=== PATIENT | female | born 1995 | race American Indian/Alaskan Native ===

== ENCOUNTER 2016-11-23 18:30 | Emergency (ER) | payer OTHER ==
[2016-11-23 18:56] VITALS: BP 126/62; PULSE 80; RESP 18; TEMP 98.8; O2SAT 100
--- NOTE | 2016-11-23 19:21 | ED PDOC ---
Upper Extremity Pain/Injury Time Seen by Provider: 11/23/16 18:57 Chief Complaint (Nursing): Upper Extremity Problem/Injury Chief Complaint (Provider): Left shoulder injury History Per: Patient History/Exam Limitations: no limitations Onset/Duration Of Symptoms: Days Current Symptoms Are (Timing): Still Present Quality: "Pain" Exacerbating Factor(s): Strenuous Use Of Affected Area Additional History Per: Patient Additional Complaint(s): The patient is a 21 y/o right hand dominant female who presents to the ED for evaluation of left shoulder pain, present for the last 3 weeks. Patient reports she visited urgent care center yesterday and had an XR done, which indicated mild AC separation. Patient states motrin has not helped the pain. Patient came to ED today due to increasing pain. No numbness or tingling to affected area. No chest pain, SOB or HUNT. Past Medical History Reviewed: Historical Data, Nursing Documentation, Vital Signs Vital Signs: Last Vital Signs Temp 98.8 F 11/23/16 18:53 Pulse 80 11/23/16 18:53 Resp 18 11/23/16 18:53 BP 126/62 11/23/16 18:53 Pulse Ox 100 11/23/16 18:53 - Medical History PMH: No Chronic Diseases - Surgical History Surgical History: Hernia Repair - Family History Family History: States: No Known Family Hx - Living Arrangements Living Arrangements: With Family - Social History Current smoker - smoking cessation education provided: No Ex-Smoker (has not smoked in the last 12 months): No Alcohol: None Drugs: Denies - Home Medications Home Medications: Ambulatory Orders Medication Instructions Recorded Cyclobenzaprine [Cyclobenzaprine 10 mg PO TID PRN #20 tab 11/23/16 HCl] Ibuprofen [Motrin Tab] 800 mg PO Q8 PRN #20 tab 11/23/16 Lidocaine 5% [Lidoderm] 1 ea TD DAILY #30 patch 11/23/16 - Allergies Allergies/Adverse Reactions: Allergies Allergy/AdvReac Type Severity Reaction Status Date / Time Penicillins Allergy family hx Verified 11/23/16 18:52 Review of Systems ROS Statement: Except As Marked, All Systems Reviewed And Found Negative Musculoskeletal: Positive for: Shoulder Pain (left) Neurological: Negative for: Weakness, Numbness Physical Exam - Reviewed Nursing Documentation Reviewed: Yes Vital Signs Reviewed: Yes - Physical Exam Appears: Positive for: Non-toxic, No Acute Distress Head Exam: Positive for: ATRAUMATIC, NORMAL INSPECTION, NORMOCEPHALIC Skin: Positive for: Warm, Dry Neck: Positive for: Normal, Supple Cardiovascular/Chest: Positive for: Regular Rate, Rhythm Respiratory: Positive for: Normal Breath Sounds. 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 Negative for: Deformity, Swelling Neurologic/Psych: Positive for: Alert, Oriented. Negative for: Motor/Sensory Deficits - Laboratory Results Urine POC: Negative - ECG O2 Sat by Pulse Oximetry: 100 (RA) Pulse Ox Interpretation: Normal Medical Decision Making Medical Decision Making: Time: 1918 Impression: Left AC joint separation Plan: -- Flexeril 10 mg PO -- Toradol 30 mg IM X-ray report from urgent care facility read by EVERETTE, report indicates mild AC separation with no fracture or dislocation. PA unable to review actual films as CD could not be opened on computer. Patient was offered another x-ray but she declined. Sling was given. Patient was referred to ortho customs and border protection inspector for follow up. Rx motrin, flexeril and lidoderm patch given. Scribe Attestation: Documented by Estefany Jurado acting as a scribe for EVERETTE Cooper Provider Attestation: All medical record entries made by the Scribe were at my direction and personally dictated by me. I have reviewed the chart and agree that the record accurately reflects my personal performance of the history, physical exam, medical decision making, and the department course for this patient. I have also personally directed, reviewed, and agree with the discharge instructions and disposition. Procedures - Splinting Location: left arm Pre-Made Type: sling Pre-Proc Neuro Vasc Exam: normal Post-Proc Neuro Vasc Exam: normal Disposition - Clinical Impression Clinical Impression: Separation of left acromioclavicular joint - Patient ED Disposition Is Patient to be Admitted: No Counseled Patient/Family Regarding: Studies Performed, Diagnosis, Need For Followup, Rx Given - Disposition Referrals: Dimas Elias III, MD [Staff Provider] - Disposition: Routine/Home Disposition Time: 19:31 Condition: STABLE Additional Instructions: Ice and rest the affected area. Take prescription meds as directed as needed for pain. Follow-up with orthopedist for any persistent symptoms. Prescriptions: Cyclobenzaprine [Cyclobenzaprine HCl] 10 mg PO TID PRN #20 tab PRN Reason: Muscle Spasm Ibuprofen [Motrin Tab] 800 mg PO Q8 PRN #20 tab PRN Reason: Pain, Moderate (4-7) Lidocaine 5% [Lidoderm] 1 ea TD DAILY #30 patch Instructions: Shoulder Sprain (ED), Shoulder Pain (ED) Forms: [employer] (Bruneian)
== END 2016-11-23 20:25 | disposition home or self-care (01) ==
LOC: H.ER 18:30
DX: S43.102A Unspecified dislocation of left acromioclavicular joint, initial encounter (principal); X50.9XXA Other and unspecified overexertion or strenuous movements or postures, initial encounter; Y92.89 Other specified places as the place of occurrence of the external cause
CPT/HCPCS: 81025; 96372; 99283; J1885

== ENCOUNTER 2017-01-02 08:48 | Emergency (ER) | payer OTHER ==
[2017-01-02 08:56] VITALS: BMI 26.5
[2017-01-02 08:57] VITALS: BP 121/48; PULSE 81; RESP 18; TEMP 98.9; O2SAT 99
--- NOTE | 2017-01-02 09:19 | ED PDOC ---
HPI: Female Pain Time Seen by Provider: 01/02/17 09:01 Chief Complaint (Nursing): Female Genitourinary Chief Complaint (Provider): Dysuria History Per: Patient History/Exam Limitations: no limitations Onset/Duration Of Symptoms: Days (Today 3am) Current Symptoms Are (Timing): Still Present Additional History Per: Patient Additional Complaint(s): Dysuria, freq urination, blood tinged urine. No abd, back pain. No nausea, vomit, diarrhea. Feels like her uti she has had multiple times in the past. No weakness. Past Medical History Reviewed: Nursing Documentation, Vital Signs Vital Signs: Last Vital Signs Temp 98.9 F 01/02/17 08:56 Pulse 81 01/02/17 08:56 Resp 18 01/02/17 08:56 BP 121/48 L 01/02/17 08:56 Pulse Ox 99 01/02/17 08:56 - Medical History PMH: Denies: Chronic Kidney Disease Other PMH: uti - Family History Family History: States: Unknown Family Hx - Social History Current smoker - smoking cessation education provided: No Alcohol: None Drugs: Denies - Immunization History Hx Tetanus Toxoid Vaccination: No Hx Influenza Vaccination: No Hx Pneumococcal Vaccination: No - Home Medications Home Medications: Ambulatory Orders Medication Instructions Recorded Cyclobenzaprine [Cyclobenzaprine 10 mg PO TID PRN #20 tab 11/23/16 HCl] Ibuprofen [Motrin Tab] 800 mg PO Q8 PRN #20 tab 11/23/16 Lidocaine 5% [Lidoderm] 1 ea TD DAILY #30 patch 11/23/16 Ciprofloxacin HCl [Cipro] 250 mg PO BID #6 tab 01/02/17 Ibuprofen [Motrin] 600 mg PO TID 7 Days tab 01/02/17 - Allergies Allergies/Adverse Reactions: Allergies Allergy/AdvReac Type Severity Reaction Status Date / Time Penicillins Allergy family hx Verified 11/23/16 18:52 Review of Systems Constitutional: Negative for: Fever, Weakness ENT: Negative for: Nose Pain, Nose Congestion Cardiovascular: Negative for: Chest Pain Respiratory: Negative for: Cough, Shortness of Breath Gastrointestinal: Negative for: Nausea, Vomiting, Abdominal Pain Genitourinary Female: Positive for: Dysuria, Frequency, Hematuria. Negative for : Vaginal Discharge, Vaginal Bleeding Musculoskeletal: Negative for: Arm Pain Neurological: Negative for: Weakness Physical Exam - Reviewed Nursing Documentation Reviewed: Yes Vital Signs Reviewed: Yes - Physical Exam Appears: Positive for: Well, Non-toxic, No Acute Distress Head Exam: Positive for: ATRAUMATIC, NORMAL INSPECTION, NORMOCEPHALIC Neck: Positive for: Normal, Painless ROM Cardiovascular/Chest: Positive for: Regular Rate, Rhythm Respiratory: Positive for: CNT, Normal Breath Sounds Gastrointestinal/Abdominal: Positive for: Normal Exam, Bowel Sounds, Soft. Negative for: Tenderness Back: Positive for: Normal Inspection. Negative for: L CVA Tenderness, R CVA Tenderness - ECG O2 Sat by Pulse Oximetry: 99 Pulse Ox Interpretation: Normal - Progress ED Course And Treament: 941: Stable. Pos uti. FU with pcp. Rx cipro. Disposition - Clinical Impression Clinical Impression: Urinary tract infection - Patient ED Disposition Is Patient to be Admitted: No Counseled Patient/Family Regarding: Studies Performed, Diagnosis, Need For Followup - Disposition Referrals: [facility] [Outside] - 01/03/17 Disposition: Routine/Home Disposition Time: 09:42 Condition: STABLE Additional Instructions: Return if not better in 3 days. Prescriptions: Ciprofloxacin HCl [Cipro] 250 mg PO BID #6 tab Ibuprofen [Motrin] 600 mg PO TID 7 Days tab Instructions: Urinary Tract Infection in Women (ED) Forms: [employer] (Tongan)
== END 2017-01-02 10:13 | disposition home or self-care (01) ==
LOC: H.ER 08:48
DX: N39.0 Urinary tract infection, site not specified (principal); Z88.0 Allergy status to penicillin

== ENCOUNTER 2017-02-21 17:53 | Emergency (ER) | payer OTHER ==
[2017-02-21 17:54] VITALS: BMI 26.5
[2017-02-21 18:37] VITALS: BP 128/68; PULSE 111; RESP 16; TEMP 99.5; O2SAT 97
[2017-02-21] MEDS ORDERED: Sodium Chloride 0.9% 1,000 ML IV STA (19:38)
--- NOTE | 2017-02-21 19:41 | ED PDOC ---
HPI: CCC, URI, Sore Throat Time Seen by Provider: 02/21/17 18:52 Chief Complaint (Nursing): Abdominal Pain Chief Complaint (Provider): diffuse pain History Per: Patient History/Exam Limitations: no limitations Have you had recent travel within the past 21 days to any of the following countries: [place], [place], [place] or [place]?: No Onset/Duration Of Symptoms: Days (2) Current Symptoms Are (Timing): Still Present Location Of Pain: Other (diffuse body aches) Associated Symptoms: Fever, Chills, Myalgias, Nasal Congestion, Vomiting, Diarrhea. denies: Sore Throat, Cough, Sputum, Neck Pain, Sinus Drainage, Nausea Ear Symptoms: Bilateral: None Past Medical History Reviewed: Historical Data, Nursing Documentation, Vital Signs Vital Signs: Last Vital Signs Temp 99.5 F 02/21/17 18:34 Pulse 111 H 02/21/17 18:34 Resp 16 02/21/17 18:34 BP 128/68 02/21/17 18:34 Pulse Ox 97 02/21/17 21:25 - Medical History PMH: No Chronic Diseases Denies: Chronic Kidney Disease - Surgical History Surgical History: Hernia Repair - Family History Family History: States: Unknown Family Hx - Immunization History Hx Tetanus Toxoid Vaccination: No Hx Influenza Vaccination: No Hx Pneumococcal Vaccination: No - Home Medications Home Medications: Ambulatory Orders Medication Instructions Recorded Cyclobenzaprine [Cyclobenzaprine 10 mg PO TID PRN #20 tab 11/23/16 HCl] Ibuprofen [Motrin Tab] 800 mg PO Q8 PRN #20 tab 11/23/16 Lidocaine 5% [Lidoderm] 1 ea TD DAILY #30 patch 11/23/16 Ciprofloxacin HCl [Cipro] 250 mg PO BID #6 tab 01/02/17 Ibuprofen [Motrin] 600 mg PO TID 7 Days tab 01/02/17 - Allergies Allergies/Adverse Reactions: Allergies Allergy/AdvReac Type Severity Reaction Status Date / Time Penicillins Allergy family hx Verified 11/23/16 18:52 Curb-65 Severity Score - CURB-65 Severity Score Confusion: No Bun >19mg/dl (>7mmol/L): No Respiratory Rate greater than/equal to 30: No Systolic BP <90 or Diastolic BP less than/equal 60mmHg: No Age >64: No Curb-65 Score: 0 Percentage 30-day mortality: 0.6% Review of Systems ROS Statement: Except As Marked, All Systems Reviewed And Found Negative Constitutional: Positive for: Fever, Chills, Malaise Respiratory: Negative for: Cough, Shortness of Breath Gastrointestinal: Positive for: Nausea, Vomiting, Abdominal Pain, Diarrhea Physical Exam - Reviewed Nursing Documentation Reviewed: Yes Vital Signs Reviewed: Yes - Physical Exam Appears: Positive for: Non-toxic, No Acute Distress. Negative for: Uncomfortable Head Exam: Positive for: ATRAUMATIC, NORMAL INSPECTION, NORMOCEPHALIC Skin: Positive for: Normal Color, Warm, DRY Eye Exam: Positive for: Normal appearance, EOMI, PERRL ENT: Positive for: Normal ENT Inspection Neck: Positive for: Normal, Painless ROM Cardiovascular/Chest: Positive for: Regular Rate, Rhythm Respiratory: Positive for: CNT, Normal Breath Sounds Gastrointestinal/Abdominal: Positive for: Normal Exam, Bowel Sounds, Soft. Negative for: Tenderness Extremity: Positive for: Normal ROM Lymphatic: Positive for: Normal Exam Neurologic/Psych: Positive for: Alert, Oriented - Laboratory Results Result Diagrams: 02/21/17 19:38 02/21/17 19:38 - ECG O2 Sat by Pulse Oximetry: 97 - Progress ED Course And Treament: impression: Flu will order: Orders Category Date Time Status COMP METABOLIC PANEL Stat Chem 02/21/17 18:53 Ordered ED Urine (POC) Stat ED Care 02/21/17 18:53 Ordered CBC (WITH DIFFERENTIAL) Stat JUAN 02/21/17 18:53 Ordered Ketorolac [Toradol] Med 02/21/17 18:57 Discontinued 30 mg .ROUTE .STK-MED ONE Ketorolac [Toradol] Med 02/21/17 18:53 Discontinued 30 mg IVP STAT STA Sodium Chloride 0.9% 1,000 ml Med 02/21/17 19:38 Ordered IV 1,000 mls/hr INFLUENZA A B Stat Serology 02/21/17 18:53 Ordered URINALYSIS Stat URINALYSIS 02/21/17 19:12 Received Disposition - Clinical Impression Clinical Impression: Viral illness - Patient ED Disposition Is Patient to be Admitted: No - Disposition Disposition Time: 17:10 Condition: GOOD Instructions: Viral Syndrome (ED) Forms: [employer] (Lithuanian)
[2017-02-21 19:44] LABS: BASO % 0.2 % (0.0-2.0); EOS % 0.1 % (0.0-4.0); HEMOGLOBIN 13.2 g/dL (12.0-16.0); LYMPH # 0.8 K/uL (1.0-4.3); LYMPH % 9.8 % (20.0-40.0); MEAN CELL VOLUME 85.9 fl (81.0-99.0); MEAN CORPUSCULAR HEMOGLOBIN 29.5 pg (27.0-31.0); MEAN CORPUSCULAR HGB CONC 34.3 g/dL (33.0-37.0); MEAN PLATELET VOLUME 8.1 fl (7.2-11.7); MONO # 0.6 K/uL (0.0-0.8); MONO % 8.3 % (0.0-10.0); NEUT # 6.4 K/uL (1.8-7.0); NEUT % 81.6 % (50.0-75.0); NRBC % 0.1 % (0.0-0.0); PLATELET COUNT 297 K/uL (130-400); RBC 4.47 Mil/uL (3.80-5.20); RED CELL DISTRIBUTION WIDTH 13.3 % (11.5-14.5); WHITE BLOOD COUNT 7.8 K/uL (4.8-10.8)
[2017-02-21 19:48] LABS: SQUAMOUS EPITHIAL 12 /hpf (0-5); URINE BILIRUBIN NEGATIVE (NEGATIVE); URINE BLOOD NEGATIVE (NEGATIVE); URINE CLARITY CLOUDY (Clear); URINE COLOR YELLOW (YELLOW); URINE GLUCOSE (UA) NEG (Normal); URINE LEUKOCYTE ESTERASE NEG Leu/uL (Negative); URINE NITRATE NEGATIVE (NEGATIVE); URINE PROTEIN 100 mg/dL (NEGATIVE)
[2017-02-21 19:52] LABS: ALB/GLOB RATIO 1.2 (1.0-2.1); ALBUMIN 4.4 g/dL (3.5-5.0); ALT/SGPT 34 U/L (9-52); AST/SGOT 30 U/L (14-36); BLOOD UREA NITROGEN 12 mg/dl (7-17); CALCIUM 8.9 mg/dL (8.4-10.2); GFR AFRICAN-AMERICAN > 60; GFR NON-AFRICAN AMERICAN > 60
[2017-02-21 20:17] LABS: LYMPHOCYTE 10 % (20-50); MONOCYTE 10 % (0-10); NEUTROPHIL 80 % (42-75); PLATELET ESTIMATE NORMAL (NORMAL); TOTAL CELLS COUNTED 100
--- NOTE | 2017-02-21 21:25 | ED PDOC ---
- Laboratory Results Result Diagrams: 02/21/17 19:38 02/21/17 19:38 - ECG O2 Sat by Pulse Oximetry: 97 Medical Decision Making Medical Decision Making: Endorsed pending influenza which is normal. Disposition - Clinical Impression Clinical Impression: Viral illness - POA Present On Arrival: None - Disposition Disposition: Routine/Home Disposition Time: 21:25 Condition: GOOD Instructions: Viral Syndrome (ED) Forms: [employer] (Maltese)
== END 2017-02-21 21:40 | disposition home or self-care (01) ==
LOC: H.ER 17:53
DX: B34.9 Viral infection, unspecified (principal); Z88.0 Allergy status to penicillin
CPT/HCPCS: 80053; 81003; 81025; 85025; 87804; 96374; 99283; J1885; J7040

== ENCOUNTER 2017-05-25 15:05 | Emergency (ER) | payer OTHER ==
[2017-05-25 15:05] VITALS: BMI 26.5
[2017-05-25 15:17] VITALS: BP 113/65; PULSE 73; RESP 16; TEMP 97.4; O2SAT 100
--- NOTE | 2017-05-25 15:26 | ED PDOC ---
HPI: Female Pain Time Seen by Provider: 05/25/17 15:18 Chief Complaint (Nursing): Female Genitourinary Chief Complaint (Provider): Hematuria, Dysuria History Per: Patient History/Exam Limitations: no limitations Onset/Duration Of Symptoms: Hrs (x 2) Current Symptoms Are (Timing): Still Present Additional Complaint(s): Philomena is a 21 y/o female with a history of past UTIs who presents to the ED complaining of dysuria and hematuria that started 2 hours ago. Patient denies fever, chills, or back pain. Last UTI was early February. PMD: None Provided Past Medical History Reviewed: Historical Data, Nursing Documentation, Vital Signs Vital Signs: Last Vital Signs Temp 97.4 F L 05/25/17 15:15 Pulse 73 05/25/17 15:15 Resp 16 05/25/17 15:15 BP 113/65 05/25/17 15:15 Pulse Ox 100 05/25/17 15:15 - Medical History PMH: No Chronic Diseases Denies: Chronic Kidney Disease - Surgical History Surgical History: Hernia Repair - Family History Family History: States: Unknown Family Hx - Immunization History Hx Tetanus Toxoid Vaccination: No Hx Influenza Vaccination: No Hx Pneumococcal Vaccination: No - Home Medications Home Medications: Ambulatory Orders Medication Instructions Recorded Cyclobenzaprine [Cyclobenzaprine 10 mg PO TID PRN #20 tab 11/23/16 HCl] Ibuprofen [Motrin Tab] 800 mg PO Q8 PRN #20 tab 11/23/16 Lidocaine 5% [Lidoderm] 1 ea TD DAILY #30 patch 11/23/16 Ciprofloxacin HCl [Cipro] 250 mg PO BID #6 tab 01/02/17 Ibuprofen [Motrin] 600 mg PO TID 7 Days tab 01/02/17 Ciprofloxacin HCl [Cipro] 500 mg PO BID #6 tablet 05/25/17 Ibuprofen [Motrin] 600 mg PO Q8 PRN #21 tab 05/25/17 Phenazopyridine HCl [Pyridium] 200 mg PO BID PRN #6 tablet 05/25/17 - Allergies Allergies/Adverse Reactions: Allergies Allergy/AdvReac Type Severity Reaction Status Date / Time Penicillins Allergy family hx Verified 11/23/16 18:52 Review of Systems ROS Statement: Except As Marked, All Systems Reviewed And Found Negative Constitutional: Negative for: Fever, Chills Genitourinary Female: Positive for: Dysuria, Hematuria Musculoskeletal: Negative for: Back Pain Physical Exam - Reviewed Nursing Documentation Reviewed: Yes Vital Signs Reviewed: Yes - Physical Exam Appears: Positive for: Well, Non-toxic, No Acute Distress Skin: Positive for: Normal Color, Warm, Dry Gastrointestinal/Abdominal: Positive for: Normal Exam, Soft. Negative for: Tenderness Back: Positive for: Normal Inspection. Negative for: L CVA Tenderness, R CVA Tenderness, Vertebral Tenderness Neurologic/Psych: Positive for: Alert, Oriented - Laboratory Results Urine POC: Negative Urine dip results: Positive for: Leukocyte Esterase, Nitrate. Negative for: Blood, Ketones, Glucose, Bilirubin, Protein - ECG O2 Sat by Pulse Oximetry: 100 (RA) Pulse Ox Interpretation: Normal Medical Decision Making Medical Decision Making: Time: 15:18 Initial Impression: Urinary Tract Infection Initial Plan: --Urine Dip --Urine --Chlamydia/GC --Urine Culture --Urinalysis Scribe Attestation: Documented by Dakotah Villalba, acting as a scribe for Leila Moralez PA-C Provider Scribe Attestation: All medical record entries made by the Scribe were at my direction and personally dictated by me. I have reviewed the chart and agree that the record accurately reflects my personal performance of the history, physical exam, medical decision making, and the department course for this patient. I have also personally directed, reviewed, and agree with the discharge instructions and disposition. Disposition - Clinical Impression Clinical Impression: Urinary tract infection - Patient ED Disposition Is Patient to be Admitted: No - Disposition Disposition: Routine/Home Disposition Time: 15:55 Condition: FAIR Prescriptions: Ciprofloxacin HCl [Cipro] 500 mg PO BID #6 tablet Ibuprofen [Motrin] 600 mg PO Q8 PRN #21 tab PRN Reason: Pain, Moderate (4-7) Phenazopyridine HCl [Pyridium] 200 mg PO BID PRN #6 tablet PRN Reason: Urinary Discomt Instructions: Urinary Tract Infection, Adult (DC) Forms: [employer] (Estonian), [facility] ED School/Work Excuse
[2017-05-25 16:20] LABS: SQUAMOUS EPITHIAL 1 /hpf (0-5); URINE BACTERIA RARE (<OCC); URINE BILIRUBIN NEGATIVE (NEGATIVE); URINE BLOOD MODERATE (NEGATIVE); URINE CLARITY CLOUDY (Clear); URINE COLOR YELLOW (YELLOW); URINE GLUCOSE (UA) NEG (Normal); URINE LEUKOCYTE ESTERASE LARGE Leu/uL (Negative); URINE PROTEIN 100 mg/dL (NEGATIVE); URINE UROBILINOGEN 0.2-1.0 mg/dL (0.2-1.0)
== END 2017-05-25 16:00 | disposition home or self-care (01) ==
LOC: H.ER 15:05
DX: N39.0 Urinary tract infection, site not specified (principal); Z87.440 Personal history of urinary (tract) infections; Z88.0 Allergy status to penicillin

== ENCOUNTER 2017-12-04 22:37 | Emergency (ER) | payer OTHER ==
[2017-12-04 22:37] VITALS: BMI 26.5
[2017-12-04 22:42] VITALS: BP 101/66; PULSE 81; RESP 17; TEMP 98.2; O2SAT 100
--- NOTE | 2017-12-04 23:25 | ED PDOC ---
HPI: Abdomen Time Seen by Provider: 12/04/17 22:56 Chief Complaint (Nursing): Abdominal Pain History Per: Patient History/Exam Limitations: no limitations Onset/Duration Of Symptoms: Days (1) Outside of [place] travel?: No Current Symptoms Are (Timing): Still Present Location Of Pain/Discomfort: Suprapubic Additional Complaint(s): Patient with no PMHx presenting with vaginal pain and suprapubic pain since this morning, states that she feels it has to do with her IUD which she has placed in September. Denies urinary symptoms, vomiting, diarrhea, constipation, or abnormal stools. States she has some nausea. No fevers or chills. States she had a vaginal discharge last week, no bleeding. States sexually active with one partner, inconsistent condom usage, is not concerned for STD's at this time. Past Medical History Reviewed: Historical Data, Nursing Documentation, Vital Signs Vital Signs: Last Vital Signs Temp 98.2 F 12/04/17 22:39 Pulse 81 12/04/17 22:39 Resp 17 12/04/17 22:39 BP 101/66 12/04/17 22:39 Pulse Ox 100 12/04/17 22:39 - Medical History PMH: No Chronic Diseases Denies: Chronic Kidney Disease - Surgical History Surgical History: Hernia Repair - Family History Family History: States: Unknown Family Hx - Immunization History Hx Tetanus Toxoid Vaccination: No Hx Influenza Vaccination: No Hx Pneumococcal Vaccination: No - Home Medications Home Medications: Ambulatory Orders Medication Instructions Recorded Cyclobenzaprine [Cyclobenzaprine 10 mg PO TID PRN #20 tab 11/23/16 HCl] Ibuprofen [Motrin Tab] 800 mg PO Q8 PRN #20 tab 11/23/16 Lidocaine 5% [Lidoderm] 1 ea TD DAILY #30 patch 11/23/16 Ciprofloxacin HCl [Cipro] 250 mg PO BID #6 tab 01/02/17 Ibuprofen [Motrin] 600 mg PO TID 7 Days tab 01/02/17 Ciprofloxacin HCl [Cipro] 500 mg PO BID #6 tablet 05/25/17 Ibuprofen [Motrin] 600 mg PO Q8 PRN #21 tab 05/25/17 Phenazopyridine HCl [Pyridium] 200 mg PO BID PRN #6 tablet 05/25/17 Ibuprofen [Motrin Tab] 600 mg PO Q6 #30 tab 12/05/17 - Allergies Allergies/Adverse Reactions: Allergies Allergy/AdvReac Type Severity Reaction Status Date / Time Penicillins Allergy family hx Verified 12/04/17 22:42 Review of Systems ROS Statement: Except As Marked, All Systems Reviewed And Found Negative Gastrointestinal: Positive for: Abdominal Pain Physical Exam - Reviewed Nursing Documentation Reviewed: Yes Vital Signs Reviewed: Yes - Physical Exam Appears: Positive for: Well, Non-toxic, No Acute Distress Head Exam: Positive for: ATRAUMATIC, NORMAL INSPECTION, NORMOCEPHALIC Skin: Positive for: Normal Color, Warm, DRY Eye Exam: Positive for: EOMI, Normal appearance, PERRL ENT: Positive for: Normal ENT Inspection Neck: Positive for: Normal, Painless ROM Cardiovascular/Chest: Positive for: Regular Rate, Rhythm Respiratory: Positive for: CNT, Normal Breath Sounds Gastrointestinal/Abdominal: Positive for: Normal Exam, Soft Pelvic Exam: Positive for: External Exam Normal, Speculum Exam Normal, Bimanual Exam Normal, No Cerv. Motion Tender, No Masses, Other (IUD string in place). Negative for: Active Bleeding Back: Positive for: Normal Inspection Extremity: Positive for: Normal ROM Neurologic/Psych: Positive for: Alert, Oriented - ECG O2 Sat by Pulse Oximetry: 100 Pulse Ox Interpretation: Normal Medical Decision Making Medical Decision Makin Patient presenting with pelvic pain --Exam shows normal appearing uterus without CMT, string in place --U/S ordered to check for wandering IUD 145 --IUD in place --Advised patient to followup with JUDICIAL LAW CLERK to have IUD checked/removed --Adivsed NSAIDs --Well appearing upon discharge Disposition - Clinical Impression Clinical Impression: Pelvic pain - Patient ED Disposition Is Patient to be Admitted: No - Disposition [facility] Disposition: Routine/Home Disposition Time: 01:52 Condition: IMPROVED Prescriptions: Ibuprofen [Motrin Tab] 600 mg PO Q6 #30 tab Instructions: Acute Pelvic Pain (DC) Forms: [employer] (Mohawk)
--- NOTE | 2017-12-05 11:44 | US ---
Date of service: 12/05/2017 HISTORY: Pelvic pain. History of IUD. LMP 11/09/2017. Cycles are regular. COMPARISON: None available. TECHNIQUE: Transvaginal only. Real -time technique with 2D, duplex and color Doppler FINDINGS: UTERUS: Measures 4.6 x 3 x 6.5 cm. Normal in size and appearance. No fibroid or other mass lesion seen. ENDOMETRIUM: Measures 4.6 mm in diameter. Intrauterine contraceptive device (IUD) identified centrally within the endometrial echo complex CERVIX: No cervical abnormality identified. RIGHT OVARY: Measures 1.9 x 2.2 x 3.0 cm. No solid mass. Normal flow. Multiple subcentimeter follicles. LEFT OVARY: Measures 2.5 x 2.5 x 4.0 cm. No solid mass. Normal flow. Multiple subcentimeter follicles. FREE FLUID: No significant free fluid noted. OTHER FINDINGS: None. IMPRESSION: IUD identified centrally within the endometrial canal. Unremarkable uterus and adnexa. Concordant results (preliminary interpretation) provided by [employer]. Procedure Completed: 00:27. Preliminary Report: Dictated and Authenticated: 01:41. Final Interpretation: 11:40. December 05, 2017
== END 2017-12-05 02:01 | disposition home or self-care (01) ==
LOC: H.ER 22:37
DX: R10.2 Pelvic and perineal pain (principal); Z88.0 Allergy status to penicillin